=== PATIENT | female | born 1975 | race Caucasian/White ===

== ENCOUNTER 2024-12-15 18:59 | Emergency (ER) | payer OTHER ==
[~2024-12-15] VITALS: Ht 170.2 cm; Wt 74.8 kg
[2024-12-15] MEDS ORDERED: levETIRAcetam 500 MG/5 ML LIQUID UDC ONE (19:30)
[2024-12-15] MEDS ORDERED: levETIRAcetam 500 MG/5 ML VIAL IV ONE (19:32)
[2024-12-15] MEDS ORDERED: LORAZEPAM 2 MG/1 ML VIAL ONE ×2 (19:35→20:55)
[2024-12-15 19:40] LABS: BASOPHILS # (AUTO) 0.1 K/UL (0.0-0.2); BASOPHILS % (AUTO) 0.4 % (0.0-2.0); EOSINOPHILS % (AUTO) 0.1 % (0.0-7.0); HEMATOCRIT 40.7 % (31.2-41.9); HEMOGLOBIN 13.7 g/dL (10.9-14.3); LYMPHOCYTES % (AUTO) 15.8 % (20.5-51.5); MEAN CORPUSCULAR HEMOGLOBIN 30.6 uug (24.7-32.8); MEAN CORPUSCULAR HGB CONC 34 g/dL (32.3-35.6); MEAN CORPUSCULAR VOLUME 90.9 fL (75.5-95.3); MONOCYTES # (AUTO) 0.6 K/uL (0.1-1.30); MONOCYTES % (AUTO) 4.3 % (0.0-11.0); NEUTROPHILS # (AUTO) 10.3 K/uL (1.8-8.9); NEUTROPHILS % (AUTO) 79.4 % (38.5-71.5); PLATELET COUNT (AUTO) 601 K/uL (179-408); RED BLOOD CELL COUNT(AUTO) 4.47 MIL/uL (3.63-4.92); RED CELL DISTRIBUTION WIDTH 12.1 % (12.3-17.7)
[2024-12-15 19:46] LABS: CALCIUM 9.7 mg/dL (8.5-10.1); POTASSIUM 3.8 mmol/L (3.5-5.1)
[2024-12-15] MEDS: LORAZEPAM 2 MG/1 ML VIAL IV ONE ×3 (19:50→21:00)
[2024-12-15] MEDS: levETIRAcetam IV 500 MG in IV DEXTROSE 5% 100 ML IV ONE (19:50)
[2024-12-15] MEDS: IV NORMAL SALINE 1000 ML BAG IV ONE (19:50)
[2024-12-15 19:52] LABS: ALBUMIN 4.8 g/dL (3.4-5.0); BILIRUBIN,DIRECT 0.1 mg/dL (0.0-0.2); BILIRUBIN,TOTAL 0.3 mg/dL (0.2-1.0); TOTAL PROTEIN, SERUM 8.3 g/dL (6.4-8.2)
[2024-12-15] MEDS ORDERED: ONDANSETRON 4 MG/2 ML VIAL ONE (19:52)
[2024-12-15] MEDS: ONDANSETRON 4 MG/2 ML VIAL IV ONE (19:58)
[2024-12-15 20:45] LABS: ABG PCO2 30.4 mmHg (32.0-45.0); ABG PH 7.437 (7.350-7.450); ABG SITE LEFT RADIAL; ABG TOTAL HEMOGLOBIN 13.7 G/dL (12.0-16.0); AaDO2 97.6 mmHg; COHb 0.2 % (0.5-1.5); MetHb 0.1 % (0.0-1.5); O2Hb 97.2 % (94.0-98.0)
[2024-12-15] MEDS ORDERED: ONDA4TAB11 PO (20:55)
[2024-12-15 21:38] VITALS: BP 137/90; TEMP 98.2; O2SAT 98
== END 2024-12-15 21:22 ==
LOC: ER 19:33
DX: F41.9 Anxiety disorder, unspecified (principal); R11.2 Nausea with vomiting, unspecified; R10.2 Pelvic and perineal pain; G40.909 Epilepsy, unspecified, not intractable, without status epilepticus; Z88.8 Allergy status to other drugs, medicaments and biological substances; Z91.041 Radiographic dye allergy status
CPT/HCPCS: 99284; 96365; 96375; 80076; 80048; 82009; 83690; 85025; 84702; 36415; 82803; 96376; 83605; 36600 ×2; J1953 ×2; J2060 ×2; J2405; J7040; A4606; A4663